=== PATIENT | female | born 2000 | race Caucasian/White ===

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

== ENCOUNTER 2018-04-16 16:13 | Emergency (ER) | payer MEDICAID ==
[2018-04-16] MEDS ORDERED: NORMAL SALINE 1000 ML 1,000 ML IV ONE (17:02)
[2018-04-16] MEDS ORDERED: ONDANSETRON HCL INJ/PF 4 MG/2 ML SDV IV ONE (17:02)
--- NOTE | 2018-04-16 17:04 | ER Document Report ---
ED Medical Screen (RME) - General Chief Complaint: Abdominal Pain Stated Complaint: VOMITING Time Seen by Provider: 04/16/18 17:02 Notes: 17 years old female presents today with nausea vomiting many times since this morning with general headache and dizziness. As well as mid abdominal pain. TRAVEL OUTSIDE OF THE [place] IN LAST 30 DAYS: No - Related Data Allergies/Adverse Reactions: Sulfa (Sulfonamide Antibiotics) Allergy (Verified 04/16/18 16:16) Past Medical History - Social History Chew tobacco use (# tins/day): No Frequency of alcohol use: None Drug Abuse: None Renal/ Medical History: Denies: Hx Peritoneal Dialysis Psychiatric Medical History: Reports: Hx Anxiety, Hx Depression Physical Exam - Vital signs Vitals: Temp Pulse BP Pulse Ox 98.8 F 95 H 133/65 H 99 04/16/18 16:33 04/16/18 16:33 04/16/18 16:33 04/16/18 16:33 Course - Vital Signs Vital signs: Temp Pulse Resp BP Pulse Ox 98.8 F 95 H 133/65 H 99 04/16/18 16:33 04/16/18 16:33 04/16/18 16:33 04/16/18 16:33
[2018-04-16 18:20] LABS: ABSOLUTE LYMPHOCYTES (AUTO) 1.9 10^3/uL (0.5-4.7); ABSOLUTE MONOCYTES (AUTO) 0.4 10^3/uL (0.1-1.4); ABSOLUTE NEUT (AUTO) 3.5 10^3/uL (1.7-8.2); BASOPHILS % (AUTO) 0.7 % (0-2); EOSINOPHILS % (AUTO) 0.4 % (0-6); HEMATOCRIT 39.7 % (36.0-47.0); HEMOGLOBIN 13.6 g/dL (12.0-15.5); LYMPHOCYTES % (AUTO) 33.2 % (13-45); MEAN CORPUSCULAR HEMOGLOBIN 31.3 pg (27.0-33.4); MEAN CORPUSCULAR HGB CONC 34.2 g/dL (32.0-36.0); MEAN CORPUSCULAR VOLUME 92 fl (80-97); MONOCYTES % (AUTO) 6.4 % (3-13); PLATELET COUNT 241 10^3/uL (150-450); RED BLOOD COUNT 4.34 10^6/uL (3.72-5.28); RED CELL DISTRIBUTION WIDTH 13.4 % (11.5-14.0); SEGMENTED NEUTROPHILS % (AUTO) 59.3 % (42-78); TOTAL CELLS COUNTED % (AUTO) 100 %; WHITE BLOOD COUNT 5.9 10^3/uL (4.0-10.5)
[2018-04-16] MEDS ORDERED: METOCLOPRAMIDE HCL INJ/PF 10 MG/2 ML SDV IV ONE (18:24)
[2018-04-16 18:38] LABS: ALANINE AMINOTRANSFERASE 16 U/L (5-35); ALBUMIN 4.6 g/dL (3.7-5.6); ALKALINE PHOSPHATASE 76 U/L (50-135); ANION GAP 13 (5-19); ASPARTATE AMINO TRANSFERASE 14 U/L (5-30); BILIRUBIN,DIRECT 0.2 mg/dL (0.0-0.4); BILIRUBIN,TOTAL 0.4 mg/dL (0.2-1.3); BLOOD UREA NITROGEN 10 mg/dL (7-20); CALCIUM 9.8 mg/dL (8.4-10.2); CARBON DIOXIDE 28 mmol/L (22-30); CHLORIDE 104 mmol/L (98-107); GLUCOSE 97 mg/dL (75-110); LIPASE 84.9 U/L (23-300); POTASSIUM 4.3 mmol/L (3.6-5.0); TOTAL PROTEIN 7.9 g/dL (6.3-8.2)
--- NOTE | 2018-04-16 19:02 | ER Document Report ---
ED General - General Chief Complaint: Abdominal Pain Stated Complaint: VOMITING Time Seen by Provider: 04/16/18 17:02 Notes: Patient is a 17-year-old female without chronic medical problems who presents with nausea, vomiting and headache. The patient states that prior to arrival she had 2 episodes of vomiting which contained flecks of blood. She states after the second episode of vomiting she developed a gradual onset of a global, throbbing, constant headache that persists. Similar to headaches that she has had in the past. She notes that she continues to feel nauseated. Nothing improves or worsens her symptoms. She denies any associated fever or constitutional symptoms. States that she has some mild, aching upper abdominal pain but that this has since resolved. No history of similar episodes of spontaneous vomiting in the past. No diarrhea. She has not seen her general doctor regarding today's concerns. TRAVEL OUTSIDE OF THE [place] IN LAST 30 DAYS: No - Related Data Allergies/Adverse Reactions: Sulfa (Sulfonamide Antibiotics) Allergy (Verified 04/16/18 16:16) Past Medical History - General Information source: Patient - Social History Smoking Status: Current Every Day Smoker Chew tobacco use (# tins/day): No Frequency of alcohol use: None Drug Abuse: None Lives with: Family Family History: Reviewed & Not Pertinent Patient has suicidal ideation: No Patient has homicidal ideation: No Renal/ Medical History: Denies: Hx Peritoneal Dialysis Psychiatric Medical History: Reports: Hx Anxiety, Hx Depression Review of Systems - Review of Systems Notes: Constitutional: Negative for fever. HENT: Negative for sore throat. Eyes: Negative for visual changes. Cardiovascular: Negative for chest pain. Respiratory: Negative for shortness of breath. Gastrointestinal: Positive for vomiting Genitourinary: Negative for dysuria. Musculoskeletal: Negative for back pain. Skin: Negative for rash. Neurological: Positive for headaches 10 point ROS negative except as marked above and in HPI. Physical Exam - Vital signs Vitals: Temp Pulse BP Pulse Ox 98.8 F 95 H 133/65 H 99 04/16/18 16:33 04/16/18 16:33 04/16/18 16:33 04/16/18 16:33 Interpretation: Normal Notes: PHYSICAL EXAMINATION: GENERAL: Well-appearing, well-nourished and in no acute distress. HEAD: Atraumatic, normocephalic. EYES: Pupils equal round and reactive to light, extraocular movements intact, sclera anicteric, conjunctiva are normal. ENT: nares patent, oropharynx clear without exudates. Moist mucous membranes. NECK: Normal range of motion, supple without lymphadenopathy LUNGS: Breath sounds clear to auscultation bilaterally and equal. No wheezes rales or rhonchi. HEART: Regular rate and rhythm without murmurs ABDOMEN: Soft, nontender, normoactive bowel sounds. No guarding, no rebound. No masses appreciated. EXTREMITIES: Normal range of motion, no pitting or edema. No cyanosis. NEUROLOGICAL: No focal neurological deficits. Moves all extremities spontaneously and on command. PSYCH: Normal mood, normal affect. SKIN: Warm, Dry, normal turgor, no rashes or lesions noted. Course - Re-evaluation Re-evalutation: 04/16/18 19:00 Presentation a very well-appearing 17-year-old female who presents with multiple concerns. Her first concern is that she had 2 episodes of vomiting the second of which contains streaks of blood although denies gross hematemesis. She states after these episodes of vomiting she developed a mild, throbbing, progressively worse frontal headache typical to her normal headaches which she gets on an almost daily basis. Nothing is new or different about a headache today. Patient is very well in appearance on exam. She states that she had some mild epigastric abdominal tenderness earlier which has since resolved. Vitals are all completely within normal limits. Labs unremarkable. She is not . She has no focal abdominal tenderness on exam to suggest acute biliary pathology, acute pancreatitis, clinical history exam and vitals are likewise inconsistent with ovarian torsion, pelvic inflammatory disease, or acute appendicitis. I do not suspect a concerning etiology of her headache particular given the mild nature of the headache and it similar pattern to when she has had headache in the past. Her headache as well as nausea and vomiting have resolved after a dose of metoclopramide. She has tolerated oral intake without any difficulty. At this time will discharge with return precautions and follow-up recommendations. Verbal discharge instructions given a the bedside and opportunity for questions given. Medication warnings reviewed. Patient is in agreement with this plan and has verbalized understanding of return precautions and the need for primary care follow-up in the next 24-72 hours. - Vital Signs Vital signs: Temp Pulse Resp BP Pulse Ox 98.8 F 95 H 18 134/75 H 100 11/15/18 16:33 04/16/18 16:33 04/16/18 20:11 04/16/18 20:11 04/16/18 20:11 - Laboratory Result Diagrams: 04/16/18 18:05 04/16/18 18:05 Discharge - Discharge Clinical Impression: Abdominal cramping Nausea & vomiting Qualifiers: Vomiting type: unspecified Vomiting Intractability: non-intractable Qualified Code(s): R11.2 - Nausea with vomiting, unspecified Headache Qualifiers: Headache type: unspecified Headache chronicity pattern: acute headache Intractability: not intractable Qualified Code(s): R51 - Headache Condition: Good Disposition: HOME, SELF-CARE Additional Instructions: You have been seen in the Emergency Department (ED) today for nausea and vomiting. Your work up today has not shown a clear cause for your symptoms. You have been prescribed Zofran; please use as prescribed as needed for your nausea. Follow up with your doctor as soon as possible regarding today's emergent visit and your symptoms of nausea. Return to the Emergency Department (ED) if you develop abdominal pain, bloody vomiting, bloody diarrhea, if you are unable to tolerate fluids due to vomiting , or if you develop other symptoms that concern you. Prescriptions: Ondansetron [Zofran Odt 4 mg Tablet] 1 - 2 tab PO Q4H PRN #15 tab.rapdis PRN Reason: For Nausea/Vomiting
[2018-04-16 20:15] VITALS: BP 134/75
== END 2018-04-16 20:16 | disposition home or self-care (01) ==
LOC: ER 16:13
DX: R10.9 Unspecified abdominal pain (principal); R11.2 Nausea with vomiting, unspecified; R51 Headache; F17.200 Nicotine dependence, unspecified, uncomplicated; Z88.2 Allergy status to sulfonamides
CPT/HCPCS: 99284; 96361; 96374; 36415; 83690; 84703; 85025; 80053; J2405; J7030

== ENCOUNTER 2018-05-26 00:25 | Emergency (ER) | payer MEDICAID, OTHER ==
[2018-05-26] MEDS ORDERED: DIPHENHYDRAMINE HCL 50 MG CAPSULE PO ONE (01:12)
--- NOTE | 2018-05-26 01:43 | ER Document Report ---
HPI - HPI Patient complains to provider of: rash Time Seen by Provider: 05/26/18 01:11 Pain Level: 2 Context: Patient is a 17-year-old female presents the emergency department complaining of generalized rash. Patient states this evening she noted a generalized rash to to her abdomen, back, bilateral lower extremities which is why she presents to the emergency room. Patient states she did not take any medications prior to arrival to the emergency room but the rash has since subsided. Patient is denying any respiratory distress, cough, runny nose, vomiting, diarrhea. Patient is also denying any new exposures to perfumes, lotions, shampoos, pets. Patient does have a picture of the rash she had prior to arrival and it does appear urticarial in nature. Past medical history: None Medications: None Allergies: Sulfa - EENT EENT: REPORTS: Sore Throat - RESPIRATORY Respiratory: REPORTS: Coughing - REPRODUCTIVE Reproductive: DENIES: : Past Medical History - General Information source: Patient - Social History Smoking Status: Current Every Day Smoker Chew tobacco use (# tins/day): No Frequency of alcohol use: None Drug Abuse: None Family History: Reviewed & Not Pertinent Patient has suicidal ideation: No Patient has homicidal ideation: No Renal/ Medical History: Denies: Hx Peritoneal Dialysis Psychiatric Medical History: Reports: Hx Anxiety, Hx Depression Vertical Provider Document - CONSTITUTIONAL Agree With Documented VS: Yes Notes: GENERAL: Alert, interacts well. No acute distress. HEAD: Normocephalic, atraumatic. EYES: Pupils equal, round, and reactive to light. Extraocular movements intact. ENT: Oral mucosa moist, tongue midline. NECK: Full range of motion. Supple. Trachea midline. LUNGS: Clear to auscultation bilaterally, no wheezes, rales, or rhonchi. No respiratory distress. HEART: Regular rate and rhythm. No murmur ABDOMEN: Soft, non-tender. Non-distended. Bowel sounds present in all 4 quadrants. EXTREMITIES: Moves all 4 extremities spontaneously. No edema, normal radial and dorsalis pedis pulses bilaterally. No cyanosis. BACK: no cervical, thoracic, lumbar midline tenderness. No saddle anesthesia, normal distal neurovascular exam. NEUROLOGICAL: Alert and oriented x3. Normal speech. cranial nerves II through XII grossly intact PSYCH: Normal affect, normal mood. SKIN: Warm, dry, normal turgor. One very small urticarial type lesion noted to the patient's left anterior distal forearm. - INFECTION CONTROL TRAVEL OUTSIDE OF THE [place] IN LAST 30 DAYS: No Course - Re-evaluation Re-evalutation: 05/26/18 01:41 Patient is currently only experiencing minor signs of urticarial rash at this time. The pictures she does show me to show urticarial type rash to her trunk posterior and anteriorly. Discussed taking Benadryl at home for her itching and return precautions for anaphylaxis. Patient continues without respiratory distress, no vomiting, diarrhea, cough. Stable for discharge - Vital Signs Vital signs: Temp Pulse Resp BP Pulse Ox 97.9 F 85 14 126/61 H 99 05/26/18 00:48 05/26/18 00:48 05/26/18 00:48 05/26/18 00:48 05/26/18 00:48 Discharge - Discharge Clinical Impression: Urticaria Condition: Stable Disposition: HOME, SELF-CARE Instructions: Acute Urticaria ([facility]) Additional Instructions: As we discussed you have been seen and treated in the emergency department for an allergic type rash. Please take Benadryl every 6 hours for this rash. Please do not be surprised if after the Benadryl wears off the rash comes back. You need to figure out what you are potentially allergic to. Please watch your use of new soap, detergent, lotions, perfumes, exposure to new pets. Please return to the emergency room for any signs of respiratory distress. Please also return to the emergency room for any other concerning symptoms.
[2018-05-26 02:16] VITALS: BP 135/59
== END 2018-05-26 02:16 | disposition home or self-care (01) ==
LOC: ER 00:25
DX: L50.9 Urticaria, unspecified (principal); F17.200 Nicotine dependence, unspecified, uncomplicated
CPT/HCPCS: 99282; J3490

== ENCOUNTER 2018-06-17 | Emergency (ER) | payer MEDICAID | END 2018-06-17 02:17 | disposition left against medical advice (07) | LOC: ER | DX: Z53.21 Procedure and treatment not carried out due to patient leaving prior to being seen by health care provider (principal) ==

== ENCOUNTER 2018-06-28 14:48 | Emergency (ER) | payer MEDICAID ==
--- NOTE | 2018-06-28 15:27 | ER Document Report ---
ED Medical Screen (RME) - General Chief Complaint: Rash Stated Complaint: SKIN PROBLEM Time Seen by Provider: 06/28/18 15:24 Notes: This 17-year-old female patient comes emergency room with a pruritic rash for the past month. She is tried Benadryl and cortisone cream. It is primarily on her arms and some areas on her left axillary back. Her boyfriend and her daughter do not have a similar rash although they do have skin to skin contact w ith her. I have greeted and performed a rapid initial assessment of this patient. A comprehensive ED assessment and evaluation of the patient, analysis of test results and completion of the medical decision making process will be conducted by additional ED providers. TRAVEL OUTSIDE OF THE [place] IN LAST 30 DAYS: No - Related Data Allergies/Adverse Reactions: Sulfa (Sulfonamide Antibiotics) Allergy (Verified 06/28/18 14:50) Past Medical History Renal/ Medical History: Denies: Hx Peritoneal Dialysis Psychiatric Medical History: Reports: Hx Anxiety, Hx Depression Physical Exam - Vital signs Vitals: Temp Pulse Resp BP Pulse Ox 98.1 F 80 16 132/67 H 100 06/28/18 15:03 06/28/18 15:03 06/28/18 15:03 06/28/18 15:03 06/28/18 15:03 Course - Vital Signs Vital signs: Temp Pulse Resp BP Pulse Ox 98.1 F 80 16 132/67 H 100 06/28/18 15:03 06/28/18 15:03 06/28/18 15:03 06/28/18 15:03 06/28/18 15:03
--- NOTE | 2018-06-28 16:56 | ER Document Report ---
HPI - HPI Time Seen by Provider: 06/28/18 15:24 Pain Level: 2 Notes: Patient is an otherwise healthy 17-year-old female who presents the emergency department with a rash that has been ongoing for approximately 1 month. Patient reports the rash is intermittent and describes it as a "burning" sensation. Patient denies any pain to the rash. Denies any alleviating or exacerbating factors. - REPRODUCTIVE Reproductive: DENIES: : - DERM Skin Color: Normal Past Medical History - General Information source: Patient - Social History Smoking Status: Current Some Day Smoker Chew tobacco use (# tins/day): No Frequency of alcohol use: None Drug Abuse: None Family History: Reviewed & Not Pertinent Patient has suicidal ideation: No Patient has homicidal ideation: No Renal/ Medical History: Denies: Hx Peritoneal Dialysis Psychiatric Medical History: Reports: Hx Anxiety, Hx Depression Surgical Hx: Negative - Immunizations Immunizations up to date: Yes Vertical Provider Document - CONSTITUTIONAL Notes: PHYSICAL EXAMINATION: GENERAL: Well-appearing, well-nourished and in no acute distress. HEAD: Atraumatic, normocephalic. EYES: Pupils equal round extraocular movements intact, conjunctiva are normal. ENT: Nares patent NECK: Normal range of motion LUNGS: No respiratory distress Musculoskeletal: Normal range of motion NEUROLOGICAL: Normal speech, normal gait. PSYCH: Normal mood, normal affect. SKIN: Warm, Dry, normal turgor, mild scattered hives. - INFECTION CONTROL TRAVEL OUTSIDE OF THE [place] IN LAST 30 DAYS: No Course - Re-evaluation Re-evalutation: Patient's rash is consistent with allergic contact dermatitis. Patient will be instructed to take [id number] Benadryl, will be started on Pepcid and prednisone. Follow-up with PCP or dairy bacteriologist. - Vital Signs Vital signs: Temp Pulse Resp BP Pulse Ox 98.1 F 80 16 132/67 H 100 06/28/18 15:03 06/28/18 15:03 06/28/18 15:03 06/28/18 15:03 06/28/18 15:03 Discharge - Discharge Clinical Impression: Skin rash Condition: Stable Disposition: HOME, SELF-CARE Additional Instructions: Please take medications as prescribed. You may also take Benadryl 25-50 mg every 6 hours as needed for itching. Please follow-up with your primary care provider. They may want to consider referring you to a dairy bacteriologist. Prescriptions: Famotidine [Pepcid 40 mg Tablet] 40 mg PO BID #14 tablet Prednisone [Deltasone 20 mg Tablet] 3 tab PO DAILY 5 Days #15 tablet
[2018-06-28 17:00] VITALS: BP 117/76
== END 2018-06-28 17:06 | disposition home or self-care (01) ==
LOC: ER 14:48
DX: R21 Rash and other nonspecific skin eruption (principal); F17.200 Nicotine dependence, unspecified, uncomplicated
CPT/HCPCS: 99282

== ENCOUNTER 2018-07-28 22:58 | Emergency (ER) | payer MEDICAID ==
--- NOTE | 2018-07-29 01:15 | ER Document Report ---
ED General - General Chief Complaint: Abdominal Pain Stated Complaint: FEVER Time Seen by Provider: 07/29/18 01:06 Primary Care Provider: BEE CHOUDHARY MD [ACTIVE STAFF] - Follow up in 3-5 days Notes: 17-year-old female emergency department chief complaint of pelvic pain, dysuria and fever. Symptoms present on and off for 2 weeks. Patient denies that she is . No abdominal pain other than suprapubic pain. No shortness of breath. No cough. No upper abdominal pain. TRAVEL OUTSIDE OF THE [place] IN LAST 30 DAYS: No - HPI Onset: Last week Onset/Duration: Gradual, Waxing and waning Quality of pain: Burning, Cramping Severity: Moderate Pain Level: 2 Associated symptoms: Fever - Related Data Allergies/Adverse Reactions: Sulfa (Sulfonamide Antibiotics) Allergy (Verified 06/28/18 14:50) Past Medical History - General Information source: Patient - Social History Smoking Status: Current Every Day Smoker Chew tobacco use (# tins/day): No Frequency of alcohol use: None Drug Abuse: None Lives with: Family Family History: Reviewed & Not Pertinent Patient has suicidal ideation: No Patient has homicidal ideation: No Pulmonary Medical History: Reports: Hx Asthma - as child Renal/ Medical History: Denies: Hx Peritoneal Dialysis Psychiatric Medical History: Reports: Hx Anxiety, Hx Depression - Immunizations Immunizations up to date: Yes Review of Systems - Review of Systems Notes: Constitutional: denies: Chills, Diaphoresis, +Fever, EENT: denies: Eye discharge, Blurred vision, Tearing, Double vision, Nose congestion, Nose discharge, Throat swelling, Mouth pain Cardiovascular: denies: Palpitations, Heart racing, Orthopnea, Dyspnea, Chest pain Respiratory: denies: Cough, Hurts to breathe, Wheezing, Shortness of breath Gastrointestinal: denies: Diarrhea, Nausea, Vomiting, Black stools, bright red blood in stool positive suprapubic abdominal pain. Genitourinary: denies: Burning, +Dysuria, Discharge, Frequency, Flank pain, Hematuria Musculoskeletal: denies: Joint pain, Joint swelling, Muscle pain, Muscle stiffness, back pain Hematologic/Lymphatic: denies: Anemia, Easy bleeding, Easy bruising, Blood clots Neurological/Psychological: denies: Confusion, Dementia, Depression, Loss of consciousness Skin: No lesions, no masses, no skin breakdown, no abscesses Physical Exam - Vital signs Vitals: Temp Pulse Resp BP Pulse Ox 100 F 117 H 20 142/64 H 97 07/28/18 23:03 07/28/18 23:03 07/28/18 23:03 07/28/18 23:03 07/28/18 23:03 Interpretation: Tachycardic, Febrile - General General appearance: Appears well, Alert - HEENT Head: Normocephalic, Atraumatic Eyes: Normal Pupils: PERRL - Respiratory Respiratory status: No respiratory distress Chest status: Nontender Breath sounds: Normal Chest palpation: Normal - Cardiovascular Rhythm: Tachycardia Heart sounds: Normal auscultation Murmur: No - Abdominal Inspection: Normal Distension: No distension Bowel sounds: Normal Tenderness: Tender - Suprapubic tenderness patient Organomegaly: No organomegaly - Genitourinary External exam: Normal Speculum exam: Normal Vaginal bleeding: Mild Bimanuel exam: Other - Mild tenderness to palpation of the uterus. - Back Back: Normal, Nontender - Extremities General upper extremity: Normal inspection, Nontender, Normal color, Normal ROM, Normal temperature General lower extremity: Normal inspection, Nontender, Normal color, Normal ROM, Normal temperature, Normal weight bearing. No: Dusty's sign - Neurological Neuro grossly intact: Yes Cognition: Normal Orientation: AAOx4 [place] Coma Scale Eye Opening: Spontaneous [place] Coma Scale Verbal: Oriented Slava Coma Scale Motor: Obeys Commands Wor[place] Coma Scale Total: 15 Speech: Normal Motor strength normal: LUE, RUE, LLE, RLE Sensory: Normal - Psychological Associated symptoms: Normal affect, Normal mood - Skin Skin Temperature: Warm Skin Moisture: Dry Skin Color: Normal Course - Re-evaluation Re-evalutation: 07/29/18 02:26 Laboratory 07/29/18 01:15 Urine Color YELLOW Urine Appearance SLIGHTLY-CLOUDY Urine pH 5.0 Ur Specific [place] 1.031 Urine Protein NEGATIVE Urine Glucose (UA) NEGATIVE Urine Ketones NEGATIVE Urine Blood SMALL H Urine Nitrite NEGATIVE Urine Bilirubin SMALL H Urine Urobilinogen NEGATIVE Ur Leukocyte Esterase SMALL H Urine WBC (Auto) 5 Urine RBC (Auto) 1 Urine Bacteria (Auto) TRACE Squamous Epi Cells Auto 5 Urine Mucus (Auto) OCC Urine Ascorbic Acid NEGATIVE Urine HCG, Qual NEGATIVE Patient with fever and uterine tenderness there definitely is some concern for PID. I am going to go ahead and give her a dose of Cipro, Rocephin and doxycycline at this time. We will culture the urine. GC and Chlamydia sent. Patient is well-appearing and in no acute distress at this time. 07/29/18 02:27 07/29/18 02:49 No obvious trichomonas on the wet prep. She is pending. Will treat empirically. Comfortable discharge at this time. - Vital Signs Vital signs: Temp Pulse Resp BP Pulse Ox 100 F 117 H 20 142/64 H 97 07/28/18 23:03 07/28/18 23:03 07/28/18 23:03 07/28/18 23:03 07/28/18 23:03 - Laboratory Laboratory results interpreted by me: 07/29/18 01:15 Urine Blood SMALL H Urine Bilirubin SMALL H Ur Leukocyte Esterase SMALL H Discharge - Discharge Clinical Impression: PID (acute pelvic inflammatory disease) Condition: Good Disposition: HOME, SELF-CARE Instructions: Observation for Appendicitis ([facility]), Pelvic Inflammatory Disease ([facility]) Additional Instructions: You could potentially have a pelvic infection versus a bladder infection. Also anytime there is abdominal pain we are concerned about developing appendicitis. In the event that your symptoms are getting worse over the next 24-48 hours she should return for repeat evaluation and treatment. Prescriptions: Ciprofloxacin HCl [Cipro 500 mg Tablet] 500 mg PO BID 3 Days #6 tablet Doxycycline Hyclate 100 mg PO BID 14 Days #28 capsule Ibuprofen [Motrin 800 mg Tablet] 800 mg PO Q8H PRN 10 Days #30 tab PRN Reason: For Pain Scale 3-4 Forms: Return to Work Referrals: BEE CHOUDHARY MD [ACTIVE STAFF] - Follow up in 3-5 days
[2018-07-29] MEDS ORDERED: ACETAMINOPHEN 325 MG TABLET PO ONE (01:19)
[2018-07-29 01:35] LABS: APPEARANCE,URINE SLIGHTLY-CLOUDY; BILIRUBIN,URINE SMALL (NEGATIVE); COLOR,URINE YELLOW; GLUCOSE, URINE NEGATIVE (NEGATIVE); KETONES,URINE NEGATIVE (NEGATIVE); LEUKOCYTE ESTERASE,URINE SMALL (NEGATIVE); NITRITE,URINE NEGATIVE (NEGATIVE); PROTEIN,URINE NEGATIVE (NEGATIVE); URINE SPECIFIC GRAVITY 1.031; UROBILINOGEN,URINE NEGATIVE mg/dL (<2.0)
[2018-07-29] MEDS ORDERED: CIPROFLOXACIN HCL 500 MG TABLET PO ONE (02:24)
[2018-07-29] MEDS ORDERED: CEFTRIAXONE INJ 1000 MG VIAL IM ONE (02:24)
[2018-07-29] MEDS ORDERED: DOXYCYCLINE HYCLATE 100 MG TABLET PO ONE (02:27)
[2018-07-29 02:40] LABS: BACTERIA (WET MOUNT) 3+ BACTERIA SEEN; RBCS (WET MOUNT) 3+ RBCS SEEN; T.VAGINALIS (WET MOUNT) NO TRICHOMONAS SEEN; WBCS (WET MOUNT) 1+ WBCS SEEN; YEAST (WET MOUNT) NO YEAST SEEN
[2018-07-29 03:04] VITALS: BP 124/64
[2018-07-29 04:06] LABS: CHLAM PCR DETECTED (NOT DETECT); GON PCR NOT DETECTED (NOT DETECT)
== END 2018-07-29 03:04 | disposition home or self-care (01) ==
LOC: ER 22:58
DX: N73.0 Acute parametritis and pelvic cellulitis (principal); R10.9 Unspecified abdominal pain; R50.9 Fever, unspecified; F17.200 Nicotine dependence, unspecified, uncomplicated; Z88.2 Allergy status to sulfonamides
CPT/HCPCS: 99284; 96372; 87086; 87210; 81025; 81001; 87491; 87591; J3490 ×3; J0696

== ENCOUNTER 2018-08-14 14:33 | Emergency (ER) | payer MEDICAID ==
[2018-08-14 14:57] VITALS: BP 124/72
--- NOTE | 2018-08-14 15:12 | ER Document Report ---
ED Skin Rash/Insect Bite/Abscs - General Chief Complaint: Skin Problem Stated Complaint: RASH Time Seen by Provider: 08/14/18 14:57 Mode of Arrival: Ambulatory Information source: Patient Notes: 17-year-old female presented to ED for complaint of scabies. She states her daughter went to his PCM recently and was diagnosed with scabies and they were told to come to the emergency room for the mother to be treated. Patient is alert oriented respirations regular and unlabored speaking in full sentences. Her only complaint is the itching and a small red rash between the toes fingers and on the abdomen and some on her arm. TRAVEL OUTSIDE OF THE [place] IN LAST 30 DAYS: No - HPI Patient complains to provider of: Skin rash/lesion - Dates she was told her daughter has scabies and she has the same rash Onset: Other - Several days Onset/Duration: Gradual Quality of pain: No pain Severity: None Pain Level: Denies Skin Character: Rash Quality of rash: Itchy Identify cause: Yes - Daughter has scabies Exacerbated by: Denies Relieved by: Denies Similar symptoms previously: No Recently seen / treated by doctor: No - Related Data Allergies/Adverse Reactions: Sulfa (Sulfonamide Antibiotics) Allergy (Verified 06/28/18 14:50) Past Medical History - General Information source: Patient - Social History Smoking Status: Never Smoker Frequency of alcohol use: None Drug Abuse: None Lives with: Spouse/Significant other Family History: Reviewed & Not Pertinent Patient has suicidal ideation: No Patient has homicidal ideation: No - Past Medical History Cardiac Medical History: Reports: None Pulmonary Medical History: Reports: Hx Asthma - as child EENT Medical History: Reports: None Neurological Medical History: Reports: None Endocrine Medical History: Reports: None Renal/ Medical History: Reports: None Malignancy Medical History: Reports: None GI Medical History: Reports: None Musculoskeletal Medical History: Reports None Skin Medical History: Reports None Psychiatric Medical History: Reports: Hx Anxiety, Hx Depression Traumatic Medical History: Reports: None Infectious Medical History: Reports: None Surgical Hx: Negative Past Surgical History: Reports: None - Immunizations Immunizations up to date: Yes Review of Systems - Review of Systems Constitutional: No symptoms reported EENT: No symptoms reported Cardiovascular: No symptoms reported Respiratory: No symptoms reported Gastrointestinal: No symptoms reported Genitourinary: No symptoms reported Female Genitourinary: No symptoms reported Musculoskeletal: No symptoms reported Skin: Rash Hematologic/Lymphatic: No symptoms reported Neurological/Psychological: No symptoms reported -: Yes All other systems reviewed and negative Physical Exam - Vital signs Vitals: Temp Pulse Resp BP Pulse Ox 97.8 F 86 16 124/72 98 08/14/18 14:53 08/14/18 14:53 08/14/18 14:53 08/14/18 14:53 08/14/18 14:53 Interpretation: Normal - General General appearance: Appears well, Alert - HEENT Head: Normocephalic, Atraumatic Eyes: Normal Pupils: PERRL - Respiratory Respiratory status: No respiratory distress Chest status: Nontender Breath sounds: Normal Chest palpation: Normal - Cardiovascular Rhythm: Regular Heart sounds: Normal auscultation Murmur: No - Abdominal Inspection: Normal Distension: No distension Bowel sounds: Normal Tenderness: Nontender Organomegaly: No organomegaly - Back Back: Normal, Nontender - Extremities General upper extremity: Normal inspection, Nontender, Normal color, Normal ROM, Normal temperature General lower extremity: Normal inspection, Nontender, Normal color, Normal ROM, Normal temperature, Normal weight bearing. No: Dusty's sign - Neurological Neuro grossly intact: Yes Cognition: Normal Orientation: AAOx4 Slava Coma Scale Eye Opening: Spontaneous [place] Coma Scale Verbal: Oriented [place] Coma Scale Motor: Obeys Commands Slava Coma Scale Total: 15 Speech: Normal Motor strength normal: LUE, RUE, LLE, RLE Sensory: Normal - Psychological Associated symptoms: Normal affect, Normal mood - Skin Skin Temperature: Warm Skin Moisture: Dry Skin Color: Normal Location of irregularity: Other - Between fingers and toes and on abdomen and arms Character of irregularity: Fine, Linear, Erythematous Course - Vital Signs Vital signs: Temp Pulse Resp BP Pulse Ox 97.8 F 86 16 124/72 98 08/14/18 14:53 08/14/18 14:53 08/14/18 14:53 08/14/18 14:53 08/14/18 14:53 Discharge - Discharge Clinical Impression: Scabies Condition: Stable Disposition: HOME, SELF-CARE Instructions: Family Physicians / Practices Additional Instructions: Scabies Your exam suggests the presence of scabies, which are microscopic parasites of the skin. These mites hussein through the skin, causing severe itching. The mite can be spread to other persons by skin contact. All clothing, towels, and bedding should be washed in very hot water, set aside for a week, then washed again. You should apply scabies-killing lotion from the neck down, then wash it off after 12 hours. You may need medication for itching, as the itch persists for many days after the mites have been killed. All family members and close personal contacts should be examined. Repeat treatment may be necessary if the infestation is not eliminated with a single treatment. Call the doctor if you develop increasing swelling and redness, red streaks, tender lumps, fever, or drainage from a skin sore. Antihistamines An antihistamine has been prescribed to control your symptoms. Antihistamines are used for many reasons, including itching, watering eyes, runny nose, allergic swelling, hives, and insect stings. Antihistamines may cause drowsiness, especially with the first dose. Do not operate machinery or drive while under the effects of the medication. Other common side effects include dry mouth and eyes. In older persons, antihistamines can occasionally cause urinary retention, constipation, and trouble focusing the eyes. Do not combine the medication with alcohol, or with any other medication without talking to your doctor. FOLLOW-UP CARE: If you have been referred to a physician for follow-up care, call the physicians office for an appointment as you were instructed or within the next two days. If you experience worsening or a significant change in your symptoms, notify the physician immediately or return to the Emergency Department at any time for re-evaluation. Prescriptions: Permethrin [Acticin 5% Cream 60 gm] 2 applic TP ONCE PRN #2 tube PRN Reason:
== END 2018-08-14 16:15 | disposition home or self-care (01) ==
LOC: ER 14:33
DX: B86 Scabies (principal); J45.909 Unspecified asthma, uncomplicated
CPT/HCPCS: 99282

== ENCOUNTER 2018-10-31 16:55 | Emergency (ER) | payer MEDICAID ==
[2018-10-31 17:08] VITALS: BP 147/74
[2018-10-31] MEDS ORDERED: ACETAMINOPHEN 325 MG TABLET PO ONE (18:05)
[2018-10-31] MEDS ORDERED: HYDROCODONE/ACETAMINOPHEN 5-325 MG TABLET PO ONE (18:06)
--- NOTE | 2018-10-31 18:06 | ER Document Report ---
HPI - HPI Patient complains to provider of: fall L ankle/R shoulder pain Time Seen by Provider: 10/31/18 17:52 Pain Level: 5 Context: 18-year-old healthy female presents the emergency department after falling down 2 sets of stairs last night and hurting her left foot. She said they were apartment stairs and it was wet and her foot got caught in between 2 stairs as the faces were open. She tried to get up and walk on the first landing and then slipped on the second set of stairs and landed on her back. She denies hitting her head, loss of consciousness, nausea, vomiting, dizziness, lightheadedness, neck stiffness or neck pain, vision changes or blurred vision, tinnitus, or any other symptoms. She states her right shoulder is "sore" and she has normal range of motion and strength in it. - REPRODUCTIVE Reproductive: DENIES: : - MUSCULOSKELETAL Musculoskeletal: REPORTS: Extremity pain - left foot/ankle Past Medical History - Social History Smoking Status: Current Every Day Smoker Frequency of alcohol use: None Drug Abuse: None Family History: Reviewed & Not Pertinent Patient has suicidal ideation: No Patient has homicidal ideation: No Pulmonary Medical History: Reports: Hx Asthma - as child Renal/ Medical History: Denies: Hx Peritoneal Dialysis Psychiatric Medical History: Reports: Hx Anxiety, Hx Depression - Immunizations Immunizations up to date: Yes Vertical Provider Document - CONSTITUTIONAL Notes: PHYSICAL EXAMINATION: Reviewed vital signs and charting by RN GENERAL: Alert, interacts well. No acute distress. HEAD: Normocephalic, atraumatic. EYES: Pupils equal, round, and reactive to light. Extraocular movements intact. ENT: Oral mucosa moist, tongue midline. NECK: Full range of motion. Supple. Trachea midline. Tenderness over the right upper trapezius along and her SCM, no cervical midline tenderness LUNGS: Clear to auscultation bilaterally, no wheezes, rales, or rhonchi. No respiratory distress. HEART: Regular rate and rhythm. No murmur ABDOMEN: soft, non-tender. No distention. Bowel sounds present BACK: No thoracic or lumbar midline tenderness EXTREMITIES: Moves all 4 extremities spontaneously. Mild edema left lateral malleolus with no ecchymosis, tenderness to palpation along the fifth tarsal and generalized tenderness over the bilateral malleoli PSYCH: Normal affect, normal mood. SKIN: Warm, dry, normal turgor. No rashes or lesions noted. - INFECTION CONTROL TRAVEL OUTSIDE OF THE [place] IN LAST 30 DAYS: No Course - Re-evaluation Re-evalutation: 10/31/18 18:04 Well-appearing. Patient does not meet criteria for [place] CT head rule. Patient with normal range of motion, normal strength, and normal distal neurovascular exam of the left arm so I am not going to obtain imaging of the right shoulder, patient is in agreement with this. I am going to obtain imaging of the left foot as she cannot bear weight on it at this time. I will give patient Tylenol for pain. X-ray pending. - Vital Signs Vital signs: Temp Pulse Resp BP Pulse Ox 98.5 F 106 H 13 147/74 H 98 10/31/18 17:06 10/31/18 17:06 10/31/18 17:06 10/31/18 17:06 10/31/18 17:06 Discharge - Discharge Clinical Impression: Injury of left foot Qualifiers: Encounter type: initial encounter Qualified Code(s): S99.922A - Unspecified injury of left foot, initial encounter Condition: Good Disposition: HOME, SELF-CARE Additional Instructions: You were seen in the emergency department this evening for a left foot injury and a right shoulder injury. Based on history and our physical exam through shared decision making we determined that an x-ray was not needed of your shoulder. You have good range of motion and I have very low suspicion for a fracture of your shoulder. The x-ray of your foot did not show any evidence of a break. We have put in an Erick wrap and given you crutches. You can employ RICE treatment: Rest, ice for 20 minutes at a time every couple of hours, compression with the Erick wrap, and elevation above your heart. Take Motrin 600 mg every 6 hours and/or Tylenol 1000 mg every 6 hours for pain and inflammation. I have given you a very short course of pain medication you can take to get you through this acute phase. If your foot starts to turn blue you can initially see if the Erick wrap is too tight but if it is not and you do not have feeling or pulses in your foot please immediately return to the emergency department as this is something more serious.
--- NOTE | 2018-10-31 18:51 | RADIOLOGY REPORT (SQ) ---
EXAM DESCRIPTION: FOOT LEFT COMPLETE COMPLETED DATE/TIME: 10/31/2018 6:38 pm REASON FOR STUDY: fall COMPARISON: None. NUMBER OF VIEWS: Three views. TECHNIQUE: AP, lateral and oblique radiographic images acquired of the left foot. LIMITATIONS: None. FINDINGS: MINERALIZATION: Normal. BONES: No acute fracture or dislocation. No worrisome bone lesions. JOINTS: No effusions. SOFT TISSUES: No soft tissue gas. No foreign body. OTHER: No other significant finding. IMPRESSION: NEGATIVE STUDY OF THE LEFT FOOT. NO RADIOGRAPHIC EVIDENCE OF ACUTE INJURY. TECHNICAL DOCUMENTATION: JOB ID: [id number] 1928 [employer]- All Rights Reserved Reading location - IP/workstation name: [email or web address]
[2018-10-31] MEDS ORDERED: HYDROCODONE/ACETAMINOPHEN 5-325 MG (6 TAB/ER DISP) PO PRN (19:10)
== END 2018-10-31 19:24 | disposition home or self-care (01) ==
LOC: ER 16:55
DX: S99.922A Unspecified injury of left foot, initial encounter (principal); M25.572 Pain in left ankle and joints of left foot; M25.511 Pain in right shoulder; W10.9XXA Fall (on) (from) unspecified stairs and steps, initial encounter; Y92.039 Unspecified place in apartment as the place of occurrence of the external cause; F17.200 Nicotine dependence, unspecified, uncomplicated
CPT/HCPCS: 99283; 73630; J3490

== ENCOUNTER 2018-11-12 08:06 | Emergency (ER) | payer MEDICAID ==
--- NOTE | 2018-11-12 09:40 | ER Document Report ---
HPI - HPI Patient complains to provider of: scabies Time Seen by Provider: 11/12/18 09:27 Pain Level: 1 Context: 18-year-old female presents the emergency department with chief complaint of scabies infestation. She states that she recently moved back in with her mom started having similar symptoms from a prior infestation in April 2018. She says she was treated here successfully and moved out of her mom's had no problems. She just moved back in with her mom and started getting bites on her anterior wrists and in between the webspaces of her fingers. She is also getting on her ankles. She said her daughter and significant other are having similar symptoms. No other complaints - REPRODUCTIVE Reproductive: DENIES: : - DERM Skin Color: Normal Past Medical History - Social History Smoking Status: Current Every Day Smoker Chew tobacco use (# tins/day): No Frequency of alcohol use: None Drug Abuse: None Family History: Reviewed & Not Pertinent Patient has suicidal ideation: No Patient has homicidal ideation: No Pulmonary Medical History: Reports: Hx Asthma - as child Renal/ Medical History: Denies: Hx Peritoneal Dialysis Psychiatric Medical History: Reports: Hx Anxiety, Hx Depression - Immunizations Immunizations up to date: Yes Vertical Provider Document - CONSTITUTIONAL Notes: PHYSICAL EXAMINATION: Reviewed vital signs and charting by RN GENERAL: Alert, interacts well. No acute distress. HEAD: Normocephalic, atraumatic. EYES: Pupils equal and round. Extraocular movements intact. NECK: Full range of motion. Trachea midline. EXTREMITIES: Moves all 4 extremities spontaneously. No edema, No cyanosis. PSYCH: Normal affect, normal mood. SKIN: Warm, dry, normal turgor. Multiple bites on the anterior wrists and webspaces of the fingers, bite monte on the ankles, consistent with bug bites. - INFECTION CONTROL TRAVEL OUTSIDE OF THE [place] IN LAST 30 DAYS: No Course - Re-evaluation Re-evalutation: 11/12/18 09:41 Overall well-appearing presentation is consistent with a scabies rash. We will treat with permethrin 5% and instructed patient to follow-up in 1 to 2 weeks if symptoms still persist. Patient is familiar with the process that she had a scabies infection since late 2017. Patient understands instructions and is stable for discharge. - Vital Signs Vital signs: Temp Pulse Resp BP Pulse Ox 98.2 F 77 14 125/66 99 11/12/18 08:19 11/12/18 08:19 11/12/18 08:19 11/12/18 08:19 11/12/18 08:19 Discharge - Discharge Clinical Impression: Scabies Condition: Good Disposition: HOME, SELF-CARE Instructions: Scabies ([facility]) Additional Instructions: You were seen in the emergency department for scabies. Please apply the cream from neck to feet one time. Because you are exposed everyone in your household is treated as well. One application of the permethrin cream is successful 90% of the time, so in 1 to 2 weeks if you are still having any symptoms you may need to reapply 1 to time. Please ensure to wash all of her bedding, linens, clothing in hot water and dry on high again, it is important that everyone in the household gets treated and you take measures to eliminate the infestation. If you develop a rash from the cream, which is rare, please rinse it off immediately and if it is severe enough you could take Benadryl 50 mg by mouth. Please return to the emergency department if you develop severe rash, develop difficulty breathing, intractable nausea or vomiting, or have any other concern symptoms. Referrals: CHARITY PEARSON MD [Primary Care Provider] - Follow up as needed
[2018-11-12 09:45] VITALS: BP 118/72
[2018-11-12] MEDS ORDERED: PERMETHRIN 5% CREAM 60 GM TP SCH (10:00)
== END 2018-11-12 09:57 | disposition home or self-care (01) ==
LOC: ER 08:06
DX: B86 Scabies (principal); F17.200 Nicotine dependence, unspecified, uncomplicated; J45.909 Unspecified asthma, uncomplicated
CPT/HCPCS: 99282; J3490

== ENCOUNTER 2019-01-02 17:14 | Emergency (ER) | payer MEDICAID ==
[2019-01-02 17:29] VITALS: BP 124/67
--- NOTE | 2019-01-02 17:47 | ER Document Report ---
HPI - HPI Time Seen by Provider: 01/02/19 17:46 Pain Level: 0 Notes: Patient is a 18-year-old female with a history of anxiety and depression who presents complaining of having nausea vomiting x3 earlier today when she was at work. Patient states that her anxiety and stress levels were too high which causes her to do this and has happened multiple times in the past. Patient states that her work wanted her evaluated and given a work note. Patient states that she has completely resolved symptoms and has been feeling well otherwise. She is able to eat and drink without difficulty. She is urinating normally and having normal bowel movements. No other vaginal discharge, odor, or bleeding. Patient denies any possibly as she is homosexual and declined any testing. Denies any headache, fever, URI, sore throat, chest pain, palpitations, syncope, cough, shortness of breath, wheeze, dyspnea, abdominal pain, diarrhea, urinary retention, dysuria, hematuria, back pain, or rash. - ROS Systems Reviewed and Negative: Yes All other systems reviewed and negative - REPRODUCTIVE Reproductive: DENIES: : Past Medical History - Social History Smoking Status: Unknown if Ever Smoked Family History: Reviewed & Not Pertinent Pulmonary Medical History: Reports: Hx Asthma - as child Renal/ Medical History: Denies: Hx Peritoneal Dialysis Psychiatric Medical History: Reports: Hx Anxiety, Hx Depression - Immunizations Immunizations up to date: Yes Vertical Provider Document - CONSTITUTIONAL Agree With Documented VS: Yes Notes: PHYSICAL EXAMINATION: GENERAL: Well-appearing, well-nourished and in no acute distress. HEAD: Atraumatic, normocephalic. EYES: Pupils equal round and reactive to light, extraocular movements intact, sclera anicteric, conjunctiva are normal. ENT: Nares patent and without discharge. oropharynx clear without exudates. No tonsilar hypertrophy or erythema. Moist mucous membranes. NECK: Normal range of motion, supple without lymphadenopathy LUNGS: Breath sounds clear to auscultation bilaterally and equal. No wheezes rales or rhonchi. HEART: Regular rate and rhythm without murmurs, rubs, gallops. ABDOMEN: Soft, nontender, nondistended abdomen. No guarding, no rebound. Normal bowel sounds present. No CVA tenderness bilaterally. العر[place] negative. No tenderness at [place]. Musculoskeletal: FROM to passive/active. Strength 5+/5. Extremities: No cyanosis, clubbing, or edema b/l. Peripheral pulses 2+. Capillary refill less than 3 seconds. NEUROLOGICAL: Normal speech, normal gait. PSYCH: Normal mood, normal affect. SKIN: Warm, Dry, normal turgor, no rashes or lesions noted. - INFECTION CONTROL TRAVEL OUTSIDE OF THE [place] IN LAST 30 DAYS: No Course - Re-evaluation Re-evalutation: 01/02/19 17:49 Patient is an afebrile, well-hydrated, 18-year-old female who presents with resolved nausea and vomiting suspect secondary to her anxiety. Vitals are acceptable without significant tachycardia, tachypnea, or hypoxia. PE is otherwise unremarkable. Patient's abdomen is soft and nontender. Her lungs are clear to auscultation bilaterally. Patient is nontoxic-appearing and is able to tolerate p.o. without difficulty. She is otherwise asymptomatic. Work note will be provided. No further work-up warranted. Low suspicion/risk for acute appendicitis, bowel obstruction, acute cholecystitis, acute cholangitis, perforated diverticulitis, incarcerated hernia, pancreatitis, perforated ulcer, peritonitis, sepsis, pelvic inflammatory disease, ectopic , tubo- ovarian abscess, ovarian torsion, or other systemic emergent condition at this time. Patient is aware that her condition can change from initial presentation and she needs to monitor symptoms closely and seek medical attention if any acute changes. Conservative measures otherwise for symptoms. Recheck with your PCM in 3-5 days. Consider consult with a night time nanny. Return to the ED with any worsening/concerning symptoms otherwise as reviewed in discharge. Patient is in agreement. - Vital Signs Vital signs: Temp Pulse Resp BP Pulse Ox 98.1 F 85 16 124/67 99 01/02/19 17:28 01/02/19 17:28 01/02/19 17:28 01/02/19 17:28 01/02/19 17:28 Discharge - Discharge Clinical Impression: Nausea and vomiting Qualifiers: Vomiting type: unspecified Vomiting Intractability: non-intractable Qualified Code(s): R11.2 - Nausea with vomiting, unspecified Condition: Stable Disposition: HOME, SELF-CARE Additional Instructions: Maintain adequate fluid and food intake [place] diet ([employer] Bananas, rice, apples, toast, etc tylenol if needed Monitor for any worsening symptoms Make sure you are staying hydrated enough to urinate and have normal BM's Recheck with your PCM in 3-5 days Consider consult with Gastroenterology for ongoing/worsening symptoms Return to the ED with any worsening symptoms and/or development of fever, headache, chest pain, palpitations, syncope, shortness of breath, trouble breathing, abdominal pain, n/v/d, blood in stool/urine, weakness, or other worsening symptoms that are concerning to you. Forms: Return to Work Referrals: CHARITY PEARSON MD [Primary Care Provider] - Follow up as needed MAHI PEÑA MD [ACTIVE STAFF] - Follow up as needed
== END 2019-01-02 17:57 | disposition home or self-care (01) ==
LOC: ER 17:14
DX: R11.2 Nausea with vomiting, unspecified (principal); R41.9 Unspecified symptoms and signs involving cognitive functions and awareness; F41.9 Anxiety disorder, unspecified; F32.9 Major depressive disorder, single episode, unspecified; J45.909 Unspecified asthma, uncomplicated
CPT/HCPCS: 99281

== ENCOUNTER 2019-03-09 17:26 | Emergency (ER) | payer MEDICAID ==
[2019-03-09 17:41] VITALS: BP 125/107
[2019-03-09] MEDS ORDERED: DIPHENHYDRAMINE HCL 50 MG/ML VIAL IV ONE (18:40)
[2019-03-09] MEDS ORDERED: PROCHLORPERAZINE EDISYLATE INJ 10 MG/2 ML VIAL IV ONE (18:40)
[2019-03-09] MEDS ORDERED: NORMAL SALINE 1000 ML 1,000 ML IV ONE (18:40)
[2019-03-09] MEDS ORDERED: KETOROLAC TROMETHAMINE INJ/PF 30 MG/1 ML SDV IV ONE (18:41)
--- NOTE | 2019-03-09 18:43 | ER Document Report ---
ED Medical Screen (RME) - General Chief Complaint: Headache Stated Complaint: MIGRAINE Time Seen by Provider: 03/09/19 18:33 Primary Care Provider: KHADRA LOWERY DO [Primary Care Provider] - Follow up as needed Notes: Patient is a 18-year-old female who presents emergency department with a chief complaint of a migraine headache. She states that the headache is in the front of her forehead. She has been taking Tylenol, but states that has not helped. She has had her headache for the past week. She is currently on her menstrual cycle. Patient states that she has anxiety, but she does not take any medications for her anxiety. She is currently seeing [facility] for mental health and does not want to see mental health here in the hospital. Exam: Appears anxious I have greeted and performed a rapid initial assessment of this patient. A comprehensive ED assessment and evaluation of the patient, analysis of test results and completion of medical decision making process will be conducted by an additional ED providers. TRAVEL OUTSIDE OF THE [place] IN LAST 30 DAYS: No - Related Data Allergies/Adverse Reactions: Sulfa (Sulfonamide Antibiotics) Allergy (Verified 03/09/19 18:35) Past Medical History - Social History Chew tobacco use (# tins/day): No Frequency of alcohol use: None Pulmonary Medical History: Reports: Hx Asthma - as child Neurological Medical History: Reports: Hx Migraine Renal/ Medical History: Denies: Hx Peritoneal Dialysis Psychiatric Medical History: Reports: Hx Anxiety, Hx Depression - Immunizations Immunizations up to date: Yes Physical Exam - Vital signs Vitals: Temp Pulse Resp BP Pulse Ox 98.9 F 90 15 125/107 H 99 03/09/19 17:40 03/09/19 17:40 03/09/19 17:40 03/09/19 17:40 03/09/19 17:40 Course - Vital Signs Vital signs: Temp Pulse Resp BP Pulse Ox 98.9 F 90 15 125/107 H 99 03/09/19 17:40 03/09/19 17:40 03/09/19 17:40 03/09/19 17:40 03/09/19 17:40 Doctor's Discharge - Discharge Referrals: KHADRA LOWERY DO [Primary Care Provider] - Follow up as needed
[2019-03-09 19:08] LABS: ABSOLUTE EOSINOPHILS # (AUTO) 0.1 10^3/uL (0.0-0.6); ABSOLUTE LYMPHOCYTES (AUTO) 1.8 10^3/uL (0.5-4.7); ABSOLUTE MONOCYTES (AUTO) 0.3 10^3/uL (0.1-1.4); BASOPHILS % (AUTO) 0.8 % (0-2); EOSINOPHILS % (AUTO) 1.1 % (0-6); HEMATOCRIT 40.2 % (36.0-47.0); HEMOGLOBIN 13.7 g/dL (12.0-15.5); LYMPHOCYTES % (AUTO) 28.6 % (13-45); MEAN CORPUSCULAR HEMOGLOBIN 30.6 pg (27.0-33.4); MEAN CORPUSCULAR HGB CONC 34.2 g/dL (32.0-36.0); MEAN CORPUSCULAR VOLUME 90 fl (80-97); MONOCYTES % (AUTO) 5.6 % (3-13); PLATELET COUNT 215 10^3/uL (150-450); RED BLOOD COUNT 4.49 10^6/uL (3.72-5.28); SEGMENTED NEUTROPHILS % (AUTO) 63.9 % (42-78); TOTAL CELLS COUNTED % (AUTO) 100 %; WHITE BLOOD COUNT 6.2 10^3/uL (4.0-10.5)
[2019-03-09 19:26] LABS: ALBUMIN 4.5 g/dL (3.5-5.0); ALKALINE PHOSPHATASE 90 U/L (38-126); ANION GAP 10 (5-19); ASPARTATE AMINO TRANSFERASE 32 U/L (14-36); BILIRUBIN,DIRECT 0.1 mg/dL (0.0-0.4); BILIRUBIN,TOTAL 0.3 mg/dL (0.2-1.3); BLOOD UREA NITROGEN 10 mg/dL (7-20); CALCIUM 9.6 mg/dL (8.4-10.2); CARBON DIOXIDE 27 mmol/L (22-30); CHLORIDE 102 mmol/L (98-107); GLUCOSE 99 mg/dL (75-110); POTASSIUM 4.6 mmol/L (3.6-5.0); TOTAL PROTEIN 7.9 g/dL (6.3-8.2)
[2019-03-09 19:43] LABS: FREE T3 3.87 pg/mL (2.77-5.27); FREE T4 (FREE THYROXINE) 0.82 ng/dL (0.78-2.19)
[2019-03-09 19:57] LABS: THYROID STIMULATING HORMONE 1.63 uIU/mL (0.47-4.68)
== END 2019-03-09 20:36 | disposition left against medical advice (07) ==
LOC: ER 17:26
DX: G43.909 Migraine, unspecified, not intractable, without status migrainosus (principal); Z88.2 Allergy status to sulfonamides; Z53.20 Procedure and treatment not carried out because of patient's decision for unspecified reasons
CPT/HCPCS: 36415; 80053; 84439; 84443; 84481; 85025; 99281

== ENCOUNTER 2019-04-23 10:15 | Emergency (ER) | payer SELFPAY ==
[2019-04-23] MEDS ORDERED: NORMAL SALINE 1000 ML 1,000 ML IV ONE (10:21)
[2019-04-23] MEDS ORDERED: ONDANSETRON HCL INJ/PF 4 MG/2 ML SDV IV ONE (10:21)
--- NOTE | 2019-04-23 10:23 | ER Document Report ---
ED Medical Screen (RME) - General Chief Complaint: Vomiting Stated Complaint: VOMITING Time Seen by Provider: 04/23/19 10:21 Primary Care Provider: KHADRA LOWERY DO [Primary Care Provider] - Follow up as needed TRAVEL OUTSIDE OF THE [place] IN LAST 30 DAYS: No - HPI Notes: 04/23/19 10:21 Patient is a 18-year-old female with no significant past medical history presents complaining of semi-productive cough with some blood-tinged on occasion for the past 2 to 3 days as well as nausea and vomiting that is been relatively constant since yesterday. Last episode of emesis was an hour ago. She is urinating normally and having normal bowel moments. Denies fever, chest pain, shortness of breath. I have treated and performed a rapid initial assessment of this patient. A comprehensive ED assessment and evaluation of the patient, analysis of test results and completion of medical decision making process will be conducted by additional ED providers. PHYSICAL EXAMINATION: GENERAL: Well-appearing, well-nourished and in no acute distress. A&Ox4. Answers questions appropriately. Lungs: CTAB Heart: RRR Abd: grossly nontender, limited exam in triage. - Related Data Allergies/Adverse Reactions: Sulfa (Sulfonamide Antibiotics) Allergy (Verified 03/09/19 18:35) Past Medical History Pulmonary Medical History: Reports: Hx Asthma - as child Neurological Medical History: Reports: Hx Migraine Renal/ Medical History: Denies: Hx Peritoneal Dialysis Psychiatric Medical History: Reports: Hx Anxiety, Hx Depression - Immunizations Immunizations up to date: Yes Physical Exam - Vital signs Vitals: Temp Pulse Resp BP Pulse Ox 98.0 F 95 16 138/87 H 98 04/23/19 10:19 04/23/19 10:19 04/23/19 10:19 04/23/19 10:19 04/23/19 10:19 Course - Vital Signs Vital signs: Temp Pulse Resp BP Pulse Ox 98.0 F 95 16 138/87 H 98 04/23/19 10:19 04/23/19 10:19 04/23/19 10:19 04/23/19 10:19 04/23/19 10:19 Doctor's Discharge - Discharge Referrals: KHADRA LOWERY DO [Primary Care Provider] - Follow up as needed
[2019-04-23 10:54] LABS: ABSOLUTE LYMPHOCYTES (AUTO) 1.3 10^3/uL (0.5-4.7); ABSOLUTE MONOCYTES (AUTO) 0.4 10^3/uL (0.1-1.4); BASOPHILS % (AUTO) 0.7 % (0-2); HEMATOCRIT 39.3 % (36.0-47.0); HEMOGLOBIN 13.6 g/dL (12.0-15.5); MEAN CORPUSCULAR HEMOGLOBIN 31.1 pg (27.0-33.4); MEAN CORPUSCULAR HGB CONC 34.6 g/dL (32.0-36.0); MEAN CORPUSCULAR VOLUME 90 fl (80-97); MONOCYTES % (AUTO) 7.5 % (3-13); PLATELET COUNT 216 10^3/uL (150-450); RED BLOOD COUNT 4.37 10^6/uL (3.72-5.28); RED CELL DISTRIBUTION WIDTH 13.3 % (11.5-14.0); SEGMENTED NEUTROPHILS % (AUTO) 62.8 % (42-78); TOTAL CELLS COUNTED % (AUTO) 100 %; WHITE BLOOD COUNT 4.8 10^3/uL (4.0-10.5)
--- NOTE | 2019-04-23 11:11 | RADIOLOGY REPORT (SQ) ---
EXAM DESCRIPTION: CHEST 2 VIEWS COMPLETED DATE/TIME: 04/23/2019 11:04 am REASON FOR STUDY: cough COMPARISON: None. EXAM PARAMETERS: NUMBER OF VIEWS: two views TECHNIQUE: Digital Frontal and Lateral radiographic views of the chest acquired. RADIATION DOSE: NA LIMITATIONS: none FINDINGS: LUNGS AND PLEURA: No consolidation, pleural effusion or pneumothorax. MEDIASTINUM AND HILAR STRUCTURES: No mediastinal or hilar contour abnormality. HEART AND VASCULAR STRUCTURES: The cardiomediastinal silhouette and pulmonary vasculature are within normal limits. BONES: No acute findings. HARDWARE: None in the chest. OTHER: No other finding. IMPRESSION: No acute cardiopulmonary process. TECHNICAL DOCUMENTATION: JOB ID: [id number] [employer]- All Rights Reserved Reading location - IP/workstation name: [email or web address]
[2019-04-23 11:24] LABS: ALBUMIN 4.5 g/dL (3.5-5.0); ALKALINE PHOSPHATASE 95 U/L (38-126); ANION GAP 9 (5-19); ASPARTATE AMINO TRANSFERASE 20 U/L (14-36); BILIRUBIN,DIRECT 0.1 mg/dL (0.0-0.4); BILIRUBIN,TOTAL 0.6 mg/dL (0.2-1.3); BLOOD UREA NITROGEN 14 mg/dL (7-20); CALCIUM 9.4 mg/dL (8.4-10.2); CARBON DIOXIDE 29 mmol/L (22-30); CHLORIDE 104 mmol/L (98-107); GLUCOSE 107 mg/dL (75-110); POTASSIUM 4.3 mmol/L (3.6-5.0)
[2019-04-23 11:44] LABS: APPEARANCE,URINE SLIGHTLY-CLOUDY; BILIRUBIN,URINE NEGATIVE (NEGATIVE); COLOR,URINE YELLOW; GLUCOSE, URINE NEGATIVE (NEGATIVE); KETONES,URINE NEGATIVE (NEGATIVE); PROTEIN,URINE NEGATIVE (NEGATIVE); URINE SPECIFIC GRAVITY 1.025; UROBILINOGEN,URINE NEGATIVE mg/dL (<2.0)
--- NOTE | 2019-04-23 13:21 | ER Document Report ---
HPI - HPI Time Seen by Provider: 04/23/19 10:21 Pain Level: 2 Notes: Patient is an otherwise healthy 18-year-old female presenting to the emergency department with chief complaint of productive cough. Patient reports yesterday she had some bloody sputum. She states she has been sick for several days. She states she then vomited one time today. Denies any abdominal pain, dysuria, abnormal vaginal discharge or fever. She states that her boss made her come because he was worried about the blood in her sputum. Patient denies any shortness of breath or difficulty breathing. - REPRODUCTIVE Reproductive: DENIES: : Past Medical History - General Information source: Patient - Social History Smoking Status: Former Smoker Chew tobacco use (# tins/day): No Frequency of alcohol use: Rare Drug Abuse: None Family History: Reviewed & Not Pertinent Patient has suicidal ideation: No Patient has homicidal ideation: No Pulmonary Medical History: Reports: Hx Asthma - as child Neurological Medical History: Reports: Hx Migraine Renal/ Medical History: Denies: Hx Peritoneal Dialysis Psychiatric Medical History: Reports: Hx Anxiety, Hx Depression - Immunizations Immunizations up to date: Yes Vertical Provider Document - CONSTITUTIONAL Notes: PHYSICAL EXAMINATION: GENERAL: Well-appearing, well-nourished and in no acute distress. HEAD: Atraumatic, normocephalic. EYES: Pupils equal round and reactive to light, extraocular movements intact, conjunctiva are normal. ENT: Nares patent, oropharynx clear without exudates. Moist mucous membranes. NECK: Normal range of motion, supple without lymphadenopathy LUNGS: Breath sounds clear to auscultation bilaterally and equal. No wheezes rales or rhonchi. HEART: Regular rate and rhythm without murmurs ABDOMEN: Soft, nontender, nondistended abdomen. No guarding, no rebound. No masses appreciated. Female : deferred Musculoskeletal: Normal range of motion, no pitting or edema. No cyanosis. NEUROLOGICAL: Cranial nerves grossly intact. Normal speech, normal gait. Normal sensory, motor exams PSYCH: Normal mood, normal affect. SKIN: Warm, Dry, normal turgor, no rashes or lesions noted. - INFECTION CONTROL TRAVEL OUTSIDE OF THE [place] IN LAST 30 DAYS: No Course - Re-evaluation Re-evalutation: Patient appears well, nontoxic, vital signs within normal limits. Work-up today has been unremarkable. Patient reports feels much improved after administration of IV fluids and Zofran. Patient will be discharged home with ED return precautions. The patient's emergency department workup and current diagnosis were explained to the patient and or family. Follow-up instructions were provided. Medications if prescribed were discussed. Instructions for when to return to the emergency department including specific worrisome symptoms were discussed with the patient and/or family. - Vital Signs Vital signs: Temp Pulse Resp BP Pulse Ox 98.0 F 95 16 138/87 H 98 04/23/19 10:19 04/23/19 10:19 04/23/19 10:19 04/23/19 10:19 04/23/19 10:19 - Laboratory Result Diagrams: 04/23/19 10:44 04/23/19 10:44 Discharge - Discharge Clinical Impression: Viral upper respiratory illness, Nausea and vomiting Condition: Stable Disposition: HOME, SELF-CARE Additional Instructions: Please take Zofran as prescribed. Tylenol or ibuprofen for any fever or body aches. Drink plenty of fluids. Follow-up with PCP if not improving in the next 1 to 2 days. Return to the emergency department with any new or worsening symptoms. Prescriptions: Ondansetron [Zofran Odt 4 mg Tablet] 1 - 2 tab PO Q4H PRN #15 tab.rapdis PRN Reason: For Nausea/Vomiting Forms: Return to Work, Treatment of Relative/Child Referrals: KHADRA LOWERY DO [NO LOCAL MD] - Follow up as needed
[2019-04-23 13:43] VITALS: BP 131/67
== END 2019-04-23 13:45 | disposition home or self-care (01) ==
LOC: ER 10:15
DX: J06.9 Acute upper respiratory infection, unspecified (principal); B97.89 Other viral agents as the cause of diseases classified elsewhere; R11.2 Nausea with vomiting, unspecified; R05 Cough; Z87.891 Personal history of nicotine dependence
CPT/HCPCS: 99283; 96361; 96374; 36415; 83690; 85025; 81025; 80053; 81001; 71046; J2405; J7030

== ENCOUNTER 2019-06-07 07:45 | Emergency (ER) | payer SELFPAY ==
[2019-06-07 09:04] LABS: ABSOLUTE LYMPHOCYTES (AUTO) 0.5 10^3/uL (0.5-4.7); ABSOLUTE MONOCYTES (AUTO) 0.2 10^3/uL (0.1-1.4); ABSOLUTE NEUT (AUTO) 4.5 10^3/uL (1.7-8.2); BASOPHILS % (AUTO) 0.3 % (0-2); EOSINOPHILS % (AUTO) 0.2 % (0-6); HEMOGLOBIN 13.2 g/dL (12.0-15.5); LYMPHOCYTES % (AUTO) 8.9 % (13-45); MEAN CORPUSCULAR HEMOGLOBIN 30.8 pg (27.0-33.4); MEAN CORPUSCULAR HGB CONC 34.6 g/dL (32.0-36.0); MEAN CORPUSCULAR VOLUME 89 fl (80-97); MONOCYTES % (AUTO) 4.4 % (3-13); PLATELET COUNT 199 10^3/uL (150-450); RED BLOOD COUNT 4.27 10^6/uL (3.72-5.28); RED CELL DISTRIBUTION WIDTH 13.2 % (11.5-14.0); SEGMENTED NEUTROPHILS % (AUTO) 86.2 % (42-78); TOTAL CELLS COUNTED % (AUTO) 100 %; WHITE BLOOD COUNT 5.2 10^3/uL (4.0-10.5)
[2019-06-07 09:23] LABS: A TYPE INFLUENZA AG NEGATIVE (NEGATIVE); B INFLUENZA AG NEGATIVE (NEGATIVE)
[2019-06-07 09:29] LABS: ANION GAP 9 (5-19); BLOOD UREA NITROGEN 15 mg/dL (7-20); CALCIUM 9.3 mg/dL (8.4-10.2); CARBON DIOXIDE 27 mmol/L (22-30); CHLORIDE 102 mmol/L (98-107); GLUCOSE 109 mg/dL (75-110); POTASSIUM 4.7 mmol/L (3.6-5.0)
--- NOTE | 2019-06-07 09:55 | ER Document Report ---
ED General - General Chief Complaint: Vomiting Stated Complaint: VOMITING,BODY ACHES Notes: 18 oh female presents with vomiting loose stools headache and generalized wea kness malaise since last night. Intermittent. Has not taken any medicine. No urinary symptoms. No vaginal bleeding or discharge. Sexually active with females only. Biotics or foreign travel. No contacts. TRAVEL OUTSIDE OF THE [place] IN LAST 30 DAYS: No - Related Data Allergies/Adverse Reactions: Sulfa (Sulfonamide Antibiotics) Allergy (Verified 06/07/19 08:42) Past Medical History - Social History Smoking Status: Never Smoker Chew tobacco use (# tins/day): No Frequency of alcohol use: Rare Drug Abuse: None Family History: Reviewed & Not Pertinent Patient has suicidal ideation: No Patient has homicidal ideation: No Pulmonary Medical History: Reports: Hx Asthma - as child Neurological Medical History: Reports: Hx Migraine Renal/ Medical History: Denies: Hx Peritoneal Dialysis Psychiatric Medical History: Reports: Hx Anxiety, Hx Depression - Immunizations Immunizations up to date: Yes Review of Systems - Review of Systems Notes: REVIEW OF SYSTEMS GEN: D malaise weakness ENT: Denies sore throat, nasal discharge, ear pain EYES: Denies blurry vision, eye pain, discharge CV: Denies chest pain, palpitations, edema RESP: Denies cough, shortness of breath, wheezing GI: D still MSK: Denies joint pain/swelling, edema, SKIN: Denies rash, skin lesions LYMPH: Denies swollen glands/lymph nodes NEURO: Denies headache, focal weakness or numbness, dizziness PSYCH: Denies depression, suicidal or homicidal ideation PHYSICAL EXAMINATION General: No acute distress, well-nourished Head: Atraumatic, normocephalic ENT: Mouth normal, oropharynx moist, no exudates or tonsillar enlargement Eyes: Conjunctiva normal, pupils equal, lids normal Neck: No JVD, supple, no guarding CVS: Normal rate, regular rhythm, no murmurs Resp: No resp distress, equal and normal breath sounds bilaterally GI: Nondistended, soft, no tenderness to palpation, no rebound or guarding Ext: No deformities, no edema, normal range of motion in upper and lower ext Back: No CVA or midline TTP Skin: No rash, warm Lymphatic: No lymphadeopathy noted Neuro: Awake, alert. Face symmetric. GCS 15. Physical Exam - Vital signs Vitals: Temp Pulse Resp BP Pulse Ox 98.3 F 110 H 18 138/65 H 100 06/07/19 07:49 06/07/19 07:49 06/07/19 07:49 06/07/19 07:49 06/07/19 07:49 Course - Re-evaluation Re-evalutation: 06/07/19 09:54 Vomiting and generalized weakness. Normal vital signs. Belly benign on exam. Few indications of the influenza. Influenza swab negative. CBC/chemistry are normal. Hydrated given nausea nausea medicine peer repeat exam: Nontender. Doubt urinary, gynecologic, or significant abdominal emergency in this patient and she is safe for discharge home with supportive care. I have discussed with the patient there likely diagnosis, aftercare plan, follow-up plans and my usual and customary return precautions. They verbalized understanding of this. 06/07/19 12:32 UA not convincing. Stable for discharge. - Vital Signs Vital signs: Temp Pulse Resp BP Pulse Ox 98.8 F 98 16 137/70 H 99 06/07/19 10:17 06/07/19 10:17 06/07/19 10:17 06/07/19 10:17 06/07/19 10:17 - Laboratory Result Diagrams: 06/07/19 08:45 06/07/19 08:45 Laboratory results interpreted by me: 06/07/19 06/07/19 08:45 10:00 Lymph % (Auto) 8.9 L Seg Neutrophils % 86.2 H Urine Blood MODERATE H Discharge - Discharge Clinical Impression: Nausea vomiting and diarrhea Condition: Good Disposition: HOME, SELF-CARE Instructions: Prescribed Antidiarrhea Medications ([facility]), Antinausea Medication ([facility]), Vomiting ([facility]) Additional Instructions: Follow-up with your regular doctor within 3 days Prescriptions: Loperamide HCl [Imodium A-D] 2 mg PO TID #9 tablet Forms: Return to Work
[2019-06-07 10:14] LABS: APPEARANCE,URINE SLIGHTLY-CLOUDY; BILIRUBIN,URINE NEGATIVE (NEGATIVE); COLOR,URINE YELLOW; GLUCOSE, URINE NEGATIVE (NEGATIVE); KETONES,URINE NEGATIVE (NEGATIVE); LEUKOCYTE ESTERASE,URINE NEGATIVE (NEGATIVE); NITRITE,URINE NEGATIVE (NEGATIVE); PROTEIN,URINE NEGATIVE (NEGATIVE); URINE SPECIFIC GRAVITY 1.025; UROBILINOGEN,URINE NEGATIVE mg/dL (<2.0)
[2019-06-07 10:20] VITALS: BP 137/70
== END 2019-06-07 10:21 | disposition home or self-care (01) ==
LOC: ER 07:45
DX: R11.2 Nausea with vomiting, unspecified (principal); R19.7 Diarrhea, unspecified; R51 Headache; R53.1 Weakness; R53.81 Other malaise
CPT/HCPCS: 36415; 80048; 81001; 85025; 87804; 99283

== ENCOUNTER 2019-08-20 10:05 | Emergency (ER) | payer SELFPAY ==
[2019-08-20] MEDS ORDERED: IBUPROFEN 800 MG TABLET PO ONE (10:16)
--- NOTE | 2019-08-20 10:17 | ER Document Report ---
ED Extremity Problem, Lower - General Chief Complaint: Ankle Injury Stated Complaint: RIGHT ANKLE PAIN, SWELLING Time Seen by Provider: 08/20/19 10:11 Primary Care Provider: HENRY CRUZ JR, DO [ACTIVE PROVISIONAL STAFF] - Follow up in 3-5 days Mode of Arrival: Ambulatory Information source: Patient Notes: 18 -year-old female presented to ED for twisting her right ankle and falling yesterday. She states it was very swollen yesterday she wrapped it elevated but the diarrhea started getting purple so she became concerned and came to the emergency room to have it checked out. Patient is alert oriented respirations regular nonlabored speaking in full sentences. Patient states she does vape a couple times a day but does not smoke cigarettes does not use alcohol or illicit drugs. TRAVEL OUTSIDE OF THE [place] IN LAST 30 DAYS: No - HPI Patient complains to provider of: Injury, Pain, Swelling Location: Ankle, Foot Occurred: Yesterday Where: Home, Outdoors Onset/Duration: Gradual, Worse Quality of pain: Throbbing Severity: Moderate Pain Level: 2 Context: Fell, Twisted Recent injury: Yes Associated symptoms: Painful ambulation Exacerbated by: Hanging down, Walking Relieved by: Elevation - Related Data Allergies/Adverse Reactions: Sulfa (Sulfonamide Antibiotics) Allergy (Verified 06/07/19 08:42) Past Medical History - General Information source: Patient - Social History Smoking Status: Former Smoker - Vape Frequency of alcohol use: None Drug Abuse: None Lives with: Family Family History: Reviewed & Not Pertinent Patient has suicidal ideation: No Patient has homicidal ideation: No - Past Medical History Cardiac Medical History: Reports: None Pulmonary Medical History: Reports: Hx Asthma - as child EENT Medical History: Reports: None Neurological Medical History: Reports: Hx Migraine Endocrine Medical History: Reports: None Renal/ Medical History: Reports: None Malignancy Medical History: Reports: None GI Medical History: Reports: None Musculoskeletal Medical History: Reports None Skin Medical History: Reports None Psychiatric Medical History: Reports: Hx Anxiety, Hx Depression Traumatic Medical History: Reports: None Infectious Medical History: Reports: None Surgical Hx: Negative Past Surgical History: Reports: None - Immunizations Immunizations up to date: Yes Review of Systems - Review of Systems Constitutional: No symptoms reported EENT: No symptoms reported Cardiovascular: No symptoms reported Respiratory: No symptoms reported Gastrointestinal: No symptoms reported Genitourinary: No symptoms reported Female Genitourinary: No symptoms reported Musculoskeletal: No symptoms reported, Ankle swelling - Swelling purple painful Skin: No symptoms reported Hematologic/Lymphatic: No symptoms reported Neurological/Psychological: No symptoms reported -: Yes All other systems reviewed and negative Physical Exam - Vital signs Vitals: Temp Pulse Resp BP Pulse Ox 98.1 F 104 H 18 131/75 H 98 08/20/19 10:12 08/20/19 10:12 08/20/19 10:12 08/20/19 10:12 08/20/19 10:12 Interpretation: Normal - General General appearance: Appears well, Alert - HEENT Head: Normocephalic, Atraumatic Eyes: Normal Pupils: PERRL - Respiratory Respiratory status: No respiratory distress Chest status: Nontender Breath sounds: Normal Chest palpation: Normal - Cardiovascular Rhythm: Regular Heart sounds: Normal auscultation Murmur: No - Abdominal Inspection: Normal Distension: No distension Bowel sounds: Normal Tenderness: Nontender Organomegaly: No organomegaly - Back Back: Normal, Nontender - Extremities General upper extremity: Normal inspection, Nontender, Normal color, Normal ROM, Normal temperature General lower extremity: Normal color, Normal temperature, Normal weight bearing. No: Dusty's sign Ankle: Tender, Ecchymosis, Edema, Limited ROM Foot: Tender, Ecchymosis, Edema, No evidence of FB - Neurological Neuro grossly intact: Yes Cognition: Normal Orientation: AAOx4 [place] Coma Scale Eye Opening: Spontaneous Slava Coma Scale Verbal: Oriented [place] Coma Scale Motor: Obeys Commands [place] Coma Scale Total: 15 Speech: Normal Motor strength normal: LUE, RUE, LLE, RLE Sensory: Normal - Psychological Associated symptoms: Normal affect, Normal mood - Skin Skin Temperature: Warm Skin Moisture: Dry Skin Color: Normal Course - Re-evaluation Re-evalutation: 08/20/19 21:57 The patient is nontoxic appearing with stable vitals. They are afebrile. Ankle exam shows no deformities with no obvious ligament instability. There is a normal pulse and sensation distally. There is no redness or signs of infection. X-rays show no acute fracture per the radiologist. Patient will be placed in an Erick wrap for comfort. Crutches will be offered and given if requested. Patient will be instructed to follow-up with not better in 1 week, sooner for increasing pain, fever, redness, numbness, tingling, weakness, any further concerns. Patient will be instructed to rest, ice, elevate their ankle. - Vital Signs Vital signs: Temp Pulse Resp BP Pulse Ox 98.0 F 96 20 136/79 H 98 08/20/19 11:45 08/20/19 11:45 08/20/19 11:45 08/20/19 11:45 08/20/19 11:45 - Diagnostic Test Radiology reviewed: Image reviewed, Reports reviewed Procedures - Immobilization Right Ankle Time completed: 11:45 Pre-Proc Neuro Vasc Exam: Normal Immobilizer type: Erick wrap, Ankle stirrup, Crutches Performed by: PCT Post-Proc Neuro Vasc Exam: Normal Alignment checked and good: Yes Discharge - Discharge Clinical Impression: Right foot pain Right ankle sprain Qualifiers: Encounter type: initial encounter Involved ligament of ankle: unspecified ligament Qualified Code(s): S93.401A - Sprain of unspecified ligament of right ankle, initial encounter Condition: Stable Disposition: HOME, SELF-CARE Additional Instructions: SPRAIN: Your injury is a sprain. A sprain results from stretching or tearing of the ligaments, usually from a twisting injury. The ligaments will require time and protection in order to heal properly. Many sprains are quite disabling and should be taken seriously. The usual initial treatment of sprains is cold packs, elevation, and rest of the injured area. Your physician has assessed the seriousness of your ligament injury, and has outlined a treatment plan. Understand that this treatment may change, depending on how you progress. SPRAINED ANKLE: Your sprained ankle results from stretching or tearing of the ligaments wh ich support the ankle. This usually results from twisting the foot inward and under. The ligaments will require time and protection in order to heal properly. Many ankle sprains are quite disabling, and should be taken seriously. The usual treatment for an ankle sprain is cold packs; protection with tape, splints, or wraps; elevation; and staying off the ankle for at least a day. As the ankle improves, you can walk IF it's not painful to bear weight. Sports are best postponed until healing is complete. More serious sprains usually require strengthening exercises after early healing. Your physician has assessed the seriousness of the ligament injury to your ankle. However, the treatment may change, depending on how your ankle progresses. If further exams were recommended, it is important that you follow through. Call the doctor if your foot becomes numb, painful, or severely swollen. ERICK WRAP: A compression dressing (erick wrap) has been placed. This helps hold the area still. It limits swelling and internal bleeding. The wrap should be comfortably snug -- not tight. You should feel a sense of pressure, but not severe pain under the wrap. Unless the physician tells you otherwise, you can adjust the wrap for comfort. If the wrap causes symptoms suggesting it's too tight -- uncomfortable pressure, swelling or discoloration beyond the wrap, numbness, or severe pain -- you must loosen the wrap. If these symptoms don't resolve promptly, return for re-evaluation. ANKLE STIRRUP SPLINT: You are to use an ankle brace called a stirrup splint. This type of brace allows you to place greater stresses on the ankle without risk of re-injury, and is often used for more severe ankle injuries such as avulsion fractures and ligament ruptures. The splint can be worn over a sock or tape. For proper support, wear the splint with a shoe over it. It's important that the splint fit properly. Adjust the heel tension, if needed. If your splint has air bladders, peel back the bottom of each air bladder, then move the Velcro attachment of the heel strap up or down. Air bladder pressure can be adjusted by pulling up the valve at the top, threading the air tube down into the main bladder, then blowing air into the bladder or squeezing it out. The two sides of the stirrup can be moved forward or back on your ankle by changing the attachment of the main straps. If you are unable to use the ankle comfortably in the splint, return for re-evaluation. USE OF CRUTCHES: The doctor has recommended that you not bear weight at this time. You will need to use crutches. Adjust the crutches so the tops come to about two inches under the armpit while you are standing upright. Use your hands -- not your armpits -- to support your weight. To get into a chair, support yourself with one crutch on the injured side. Hold the chair with the other hand, then lower yourself while putting all your weight on the good leg. Going up stairs is `good leg up, step up, then bring up crutches and bad leg.' Down stairs is `bad leg and crutches down, then bring good leg down.' If you develop numbness or swelling in an arm or hand, you are using the crutches incorrectly. Return if you are having any problems with the crutches. ICE & ELEVATION: Apply ice packs frequently against the painful area. Many different schedules are recommended, such as "20 minutes on, 20 minutes off" or "one hour ice, two hours rest." If you need to work, you may need to go longer between ice treatments. You should plan to have the area ice packed AT LEAST one-fourth of the time. The ice should be applied over the wrap, tape, or splint, or over a layer of cloth -- not directly against the skin. Some ice bags have a built-in cloth and can be put directly on the skin. Your injured part should be elevated as much as possible over the next 48 hours. Try to keep the injury above the level of the heart. Avoid use of the injured area. Elevation and rest will decrease the swelling. USE OF [id number] IBUPROFEN: Ibuprofen (Advil, Nuprin, Medipren, Motrin IB) is a medication for fever and pain control. In addition, it has anti- inflammatory effects which may be beneficial, especially in the treatment of injuries. It's best to take ibuprofen with food. Persons with ulcer disease or allergy to aspirin should notify their physician of this before taking ibuprofen. Ibuprofen can be given every four to six hours, for a total of four doses daily. Age Pain or fever dose Antiinflammatory dose 6-8 yr 200 mg (1 tab) 200 mg (1 tab) 9-11 yr 200 mg (1 tab) 200-400 mg (1-2 tab) 11-14 yr 200-400 mg (1-2 tab) 400 mg (2 tab) 15-adult 400 mg (2 tab) 600 mg (3 tab) Acetaminophen Acetaminophen may be taken for pain relief or fever control. It's much safer than aspirin, offering a wider range of "safe" dosages. It is safe during . Some brand names are Tylenol, Panadol, Datril, Anacin 3, Tempra, and Liquiprin. Acetaminophen can be repeated every four hours. The following are maximum recommended dosages: WEIGHT Dose Drops Elixir Chewable(80mg) (LBS.) drprs=droppers tsp=teaspoon 6 40 mg .4 ml (1/2) 6-11 80 mg .8 ml (full) 1/2 tsp 1 tab 12-16 120 mg 1 1/2 drprs 3/4 tsp 1 1/2 tabs 17-23 160 mg 2 drprs 1 tsp 2 tabs 24-30 240 mg 3 drprs 1 1/2 tsp 3 tabs 30-35 320 mg 2 tsp 4 tabs 36-41 360 mg 2 1/4 tsp 4 1/2 tabs 42-47 400 mg 2 1/2 tsp 5 tabs 48-53 480 mg 3 tsp 6 tabs 54-59 520 mg 3 1/4 tsp 6 1/2 tabs 60-64 560 mg 3 1/2 tsp 7 tabs 65-70 600 mg 3 3/4 tsp 7 1/2 tabs 71-76 640 mg 4 tsp 8 tabs 77-82 720 mg 4 1/2 tsp 9 tabs 83-88 800 mg 5 tsp 10 tabs >89 pounds or adults 650 mg to 900 mg Acetaminophen can be repeated every four hours. Maximum daily dose not to exceed 4000 mg. These maximum recommended dosages are slightly higher than the dosages written on the product container, but these dosages are very safe and well below the toxic dosage for acetaminophen. FOLLOW-UP CARE: If you have been referred to a physician for follow-up care, call the physicians office for an appointment as you were instructed or within the next two days. If you experience worsening or a significant change in your symptoms, notify the physician immediately or return to the Emergency Department at any time for re-evaluation. Forms: Elevated Blood Pressure Referrals: HENRY CRUZ JR, DO [ACTIVE PROVISIONAL STAFF] - Follow up in 3-5 days
--- NOTE | 2019-08-20 11:18 | RADIOLOGY REPORT (SQ) ---
EXAM DESCRIPTION: ANKLE RIGHT COMPLETE COMPLETED DATE/TIME: 08/20/2019 10:50 am REASON FOR STUDY: Pain injury swelling COMPARISON: None. NUMBER OF VIEWS: Three views. TECHNIQUE: AP, lateral, and oblique radiographic images acquired of the right ankle. LIMITATIONS: None. FINDINGS: MINERALIZATION: Normal. BONES: No acute fracture or dislocation. No worrisome bone lesions. JOINTS: Ankle joint effusion is present. No disruption of the ankle mortise. SOFT TISSUES: Diffuse lateral and anterior soft tissue swelling OTHER: No other significant finding. IMPRESSION: Lateral and anterior right ankle soft tissue swelling with ankle joint effusion. No acute displaced fracture. No disruption of the ankle mortise TECHNICAL DOCUMENTATION: JOB ID: [id number] 2010 [employer]- All Rights Reserved Reading location - IP/workstation name: [email or web address]
--- NOTE | 2019-08-20 11:19 | RADIOLOGY REPORT (SQ) ---
EXAM DESCRIPTION: FOOT RIGHT COMPLETE COMPLETED DATE/TIME: 08/20/2019 10:50 am REASON FOR STUDY: Pain injury swelling COMPARISON: Ankle films same date NUMBER OF VIEWS: Three views. TECHNIQUE: AP, lateral and oblique radiographic images acquired of the right foot. LIMITATIONS: None. FINDINGS: MINERALIZATION: Normal. BONES: No acute fracture or dislocation. No worrisome bone lesions. JOINTS: Tibiotalar joint effusion SOFT TISSUES: Diffuse lateral soft tissue swelling at the ankle OTHER: No other significant finding. IMPRESSION: Ankle joint effusion and lateral soft tissue swelling. No acute fracture or malalignmen t over the right foot. TECHNICAL DOCUMENTATION: JOB ID: [id number] 2010 [employer]- All Rights Reserved Reading location - IP/workstation name: [email or web address]
[2019-08-20 11:46] VITALS: BP 136/79
== END 2019-08-20 11:44 | disposition home or self-care (01) ==
LOC: ER 10:05
DX: S93.401A Sprain of unspecified ligament of right ankle, initial encounter (principal); M79.671 Pain in right foot; X58.XXXA Exposure to other specified factors, initial encounter; R19.7 Diarrhea, unspecified; Z88.2 Allergy status to sulfonamides
CPT/HCPCS: 99283

== ENCOUNTER 2020-03-08 00:21 | Emergency (ER) | payer MEDICAID ==
[2020-03-08 01:47] VITALS: BP 144/81
== END 2020-03-08 03:00 | disposition left against medical advice (07) ==
LOC: ER 00:21
DX: Z53.21 Procedure and treatment not carried out due to patient leaving prior to being seen by health care provider (principal)